=== PATIENT | female | born 1985 ===

== ENCOUNTER 2024-05-12 11:10 | Outpatient (AMB) | payer OTHER, SELFPAY ==
--- NOTE | 2024-05-12 11:55 | MHC.OFFWIV ---
Intake Vital Signs 05/12/24 12:03 Height 5 ft 2 in BP 122/74 Blood Pressure Location Rt brachial Position Sitting Pulse 80 Pulse Source Pulse Oximeter Temp 97.9 F Temp Source Oral Pulse Oximetry (%) 98 Intake Visit Reasons: low abdomen pain, missed period Intake Note: pt is here for low abd pain, missed period Patient Tobacco Use Status: Never used Tobacco Allergies No Known Allergies Allergy (Verified 05/12/24 11:55) Do you need a note to return to daycare/school/sports/work: Yes HPI low abdomen pain, missed period HPI Details This note is constructed using voice recognition software. While every effort has been made to ensure accuracy, [employer] consultant errors may have been included. The patient is a 32 year old female who presents to the clinic today with lower abdominal pain and missed menses last month. She notes that for the last week or so she has had some lower abdomen and left-sided pain with some lower left back pain, crampy in nature, similar to an intense menses. She is due for her 2nd menses eminently after missing last month. She is sexually active, and would not mind a should it occur. She notes that she has a history of PCOS, however her periods have always been very regular. She does not have a primary care provider or physical therapist technician. She denies fever, chills, change in bowel pattern, change in urine pattern, nausea, vomiting, diarrhea, constipation, bright red blood per rectum. [facility] Social History Patient Tobacco Use Status: Never used Tobacco Review of Systems Const All systems reviewed & are unremarkable except as noted in HPI and below Physical Exam Vital Signs: Last Vital Signs Temp 97.9 F 05/12/24 12:03 Pulse 80 05/12/24 12:03 BP 122/74 05/12/24 12:03 Pulse Ox 98 05/12/24 12:03 Const General: cooperative, healthy appearing, comfortable, no acute distress and alert Orientation/consciousness: patient oriented x3 Limitations: no limitations Resp Effort & Inspection: normal respiratory effort and able to speak in complete sentences Auscultation: clear to auscultation bilaterally Cardio Jugular venous distension: no JVD Palpation: normal PMI Rate: regular rate Heart sounds: S1 normal heart sound present, S2 normal heart sound present, no click, no gallops, no murmurs and no rubs GI Inspection: Yes normal to inspection Palpation (GI): Soft to palpation and nontender Percussion: Yes normal to percussion Auscultation: normal bowel sounds Skin General skin exam: no rashes or lesions noted, elasticity normal and turgor normal Neuro General: patient oriented x3 Psych Appearance: grossly normal Mental Status: mental status grossly normal Speech and movement: Normal speech and movement present Affect: normal affect Assessment & Plan Assessment & Plan (1) Amenorrhea: Code(s): N91.2 - Amenorrhea, unspecified Plan: In office urine test negative. In office urinalysis dip negative for likely infection. May be related to PCOS. Symptomatology today likely consistent with impending menses. Advised NSAIDs for prostaglandin effect, as well as heating pads. Advised patient to present to the ER with hemorrhaging or bleeding which leads to soaking through 1 10 lb or 1 pad per hour. Advised follow up with PCP or physical therapist technician as needed with worsening or failure to resolve. (2) PCOS (polycystic ovarian syndrome): Code(s): E28.2 - Polycystic ovarian syndrome Plan: Patient with longstanding history of PCOS and 1 missed menses. Advised patient to follow with PCP or physical therapist technician for ongoing symptoms. Discussed how PCOS may lead to missed Menses, which may require further treatment. Patient is interested in ultrasound to evaluate her PCOS as well as blood work, which would best be managed by primary care team. Plan See above for full details and plan. Coding Level of Care Code Est Pt Level 3 (37297) Diagnoses Amenorrhea N91.2 PCOS (polycystic ovarian syndrome) E28.2
[2024-05-12 12:03] VITALS: BP 122/74; PULSE 80; TEMP 36.6; O2SAT 98
== END 2024-05-12 12:42 | disposition home or self-care (01) ==
PROVIDERS: Visit Provider Registered Nurse
DX: N91.2 Amenorrhea, unspecified (principal); R10.30 Lower abdominal pain, unspecified
CPT/HCPCS: 81003; 81025; 99213